=== PATIENT | male | born 1935 | race Caucasian/White ===

== ENCOUNTER 2016-11-11 11:57 | Inpatient (IN) ==
--- NOTE | 2016-11-11 12:18 | Emergency Department Note ---
Disposition Clinical Impression: CHF (congestive heart failure), Painless hematuria Disposition: Admitted As Inpatient Condition: Fair General Adult HPI - General Chief complaint: ED Urogenital-Male Stated complaint: hematuria Time Seen by Provider: 11/11/16 12:00 Source: patient, EMS Limitations: no limitations Nursing Notes Reviewed: Yes Vital Signs Reviewed: Yes - History of Present Illness Pain Scale: 9 - Related Data Home Medications Medication Instructions Recorded Confirmed Albuterol Sulfate [Proair Hfa] 2 puff IH QID PRN 11/11/16 11/11/16 Amiodarone [Cordarone] 200 mg PO DAILY 11/11/16 11/11/16 Apixaban [Eliquis] 5 mg PO BID 11/11/16 11/11/16 Ascorbate Calcium [Vitamin C] 250 mg PO DAILY 11/11/16 11/11/16 Aspirin [Lo-Dose Aspirin EC] 81 mg PO DAILY 11/11/16 11/11/16 Baclofen [Lioresal] 5 mg PO BID 11/11/16 11/11/16 Budesonide/Formoterol 160/4.5 2 puff IH BID 11/11/16 11/11/16 [Symbicort 160/4.5] Calcium Carbonate [Calcium] 650 mg PO DAILY 11/11/16 11/11/16 Docusate Sodium [Dok] 100 mg PO DAILY 11/11/16 11/11/16 Ferrous Sulfate [Iron] 325 mg PO DAILY 11/11/16 11/11/16 Finasteride [Proscar] 5 mg PO DAILY 11/11/16 11/11/16 Furosemide [Lasix] 40 mg PO BID 11/11/16 11/11/16 HYDROcodone/Acet 5/325 mg [[place] 1 tab PO Q6H PRN 11/11/16 11/11/16 5-325 mg] Lisinopril [Zestril] 10 mg PO DAILY 11/11/16 11/11/16 Omeprazole 20 mg PO DAILY 11/11/16 11/11/16 Polyethylene Glycol 3350 [MiraLAX 17 gm PO DAILY 11/11/16 11/11/16 bowel prep] Rosuvastatin [Crestor] 10 mg PO HS 11/11/16 11/11/16 Tamsulosin HCl [Flomax] 0.4 mg PO DAILY 11/11/16 11/11/16 glipiZIDE [Glucotrol] 5 mg PO BID 11/11/16 11/11/16 Allergies Allergy/AdvReac Type Severity Reaction Status Date / Time bacitracin Allergy Rash Verified 11/11/16 12:08 Past Medical History - Past Medical History Medical history: Reports: atrial fibrillation, CHF, COPD, coronary artery disease, diabetes, hyperlipidemia, hypertension, myocardial infarction, other Psychiatric history: Reports: no psych history - Social History Smoking Status: Former smoker Smokeless Tobacco Status: No Alcohol use: Reports: none Drug use: Reports: none Physical Exam - General Limitations: no limitations General appearance: alert, in no apparent distress Course Vital Signs Temperature 97.9 F 11/11/16 11:59 Pulse Rate 82 11/11/16 11:59 Respiratory Rate 18 11/11/16 11:59 Blood Pressure 116/69 11/11/16 11:59 O2 Sat by Pulse Oximetry 100 11/11/16 11:59 Temperature 98.0 F 11/11/16 13:26 Pulse Rate 80 11/11/16 13:26 Respiratory Rate 15 11/11/16 16:12 Blood Pressure 148/77 11/11/16 13:26 O2 Sat by Pulse Oximetry 98 11/11/16 16:12 Oxygen Delivery Oxygen Delivery Room Air Medical Decision Making - MDM Narrative Medical decision making narrative: I examined this patient and my medical decision-making was reviewed with the REFRACTORY MIXER/PA/Advanced Practice Nurse/Resident Physician. I agree with the documented findings, disposition and treatment plan as described except to the extent set forth below. Patient was seen today by Dr. Lopez and myself, I agree with his evaluation and treatment plan, supervised the care of the patient 's stay. Patient was a transfer from the [facility]. He was being evaluated for hematuria there which she does have. They also said he had a history of CHF and was hypotensive there is blood pressure was initially 70 systolic they did give him fluids when medics got here his blood pressure is 114 /74. He looks good. Reviewed through his chart. Vertigo and get him admitted this time he will need hospital's admission with urology consulting. - Lab Data Result diagrams: 11/11/16 15:58
--- NOTE | 2016-11-11 12:54 | Emergency Department Note ---
Disposition Clinical Impression: Painless hematuria CHF (congestive heart failure) Qualifiers: Congestive heart failure type: unspecified congestive heart failure type Congestive heart failure chronicity: unspecified congestive heart failure chronicity Qualified Code(s): I50.9 - Heart failure, unspecified Disposition: Admitted As Inpatient Condition: Fair Forms: ED Satisfaction Letter Time of Disposition: 13:05 General Adult HPI - General Chief complaint: ED Urogenital-Male Stated complaint: hematuria Time Seen by Provider: 11/11/16 12:00 Source: patient, EMS Mode of arrival: EMS Limitations: no limitations Nursing Notes Reviewed: Yes Vital Signs Reviewed: Yes - History of Present Illness HPI Narrative: Patient arrives to the ED via EMS as a [facility] [place]. The patient presented to urgent care today with painless hematuria that was onset last night. There is no associated abdominal pain. No flank pain. States that he was scoped last year and [place], but was never told what was going on. When EMS got there, they found him somewhat confused with a systolic blood pressure of 70. [facility] reports that they believe his CHF is acting up with an elevated BNP and pulmonary edema on chest x -ray. Patient denies any current chest pain or significant difficulty in breathing above his baseline. No fevers. [facility] did not seem concerned with his initial hypotension and he seemed to have responded very well to fluids. Pain Scale: 9 - Related Data Allergies Allergy/AdvReac Type Severity Reaction Status Date / Time bacitracin Allergy Rash Verified 11/11/16 12:08 Constitutional: Denies: fever Eyes: Denies: vision change Cardiovascular: Denies: chest pain Respiratory: Denies: dyspnea Gastrointestinal: Denies: abdominal pain Genitourinary: Reports: as per HPI Past Medical History - Past Medical History Medical history: Reports: atrial fibrillation, CHF, COPD, coronary artery disease, diabetes, hyperlipidemia, hypertension, myocardial infarction, other Psychiatric history: Reports: no psych history - Social History Smoking Status: Former smoker Smokeless Tobacco Status: No Alcohol use: Reports: none Drug use: Reports: none Physical Exam - General Limitations: no limitations General appearance: alert, in no apparent distress - Head Head exam: atraumatic, normocephalic, normal inspection - Eye Eye exam: Present: normal appearance, PERRL, EOMI - ENT ENT exam: normal exam, normal oropharynx, mucous membranes moist - Neck Neck exam: Present: normal inspection, full ROM, trachea midline - Chest Chest inspection: Present: normal inspection, symmetric chest wall rise - Respiratory Respiratory exam: Present: normal lung sounds bilaterally. Absent: respiratory distress - Cardiovascular Cardiovascular exam: Present: regular rate, normal rhythm, normal heart sounds - Abdominal Exam Abdominal exam: Present: soft, Non-Tender. Absent: tenderness - Extremities Exam Extremities exam: Present: pedal edema (Chronic venous stasis changes) - Back Exam Back exam: Present: normal inspection, full ROM. Absent: tenderness - Neurological Exam Neurological exam: Present: alert, oriented X3, CN II-XII intact - Skin Skin exam: Present: warm, dry, intact, normal color (Venous stasis changes bilateral lower extremities, chronic, no change) Course Course Narrative: 81-year-old male [facility] in the setting of CHF and painless hematuria. Will admit with urology consult. Patient completely stable now. Does not seem to be in overt failure. Vital Signs Temperature 97.9 F 11/11/16 11:59 Pulse Rate 82 11/11/16 11:59 Respiratory Rate 18 11/11/16 11:59 Blood Pressure 116/69 11/11/16 11:59 O2 Sat by Pulse Oximetry 100 11/11/16 11:59 Temperature 97.9 F 11/11/16 11:59 Pulse Rate 82 11/11/16 11:59 Respiratory Rate 18 11/11/16 11:59 Blood Pressure 116/69 11/11/16 11:59 O2 Sat by Pulse Oximetry 100 11/11/16 11:59 Oxygen Delivery Oxygen Delivery Room Air
[2016-11-11 14:22] LABS: Bilirubin,Urine Negative (Negative); Blood,Urine Large (Negative); Clarity,Urine Cloudy (Clear); Glucose,Urine (UA) Normal (Normal); Ketones,Urine Negative (Negative); Leukocyte Esterase,Urine Small (Negative); Nitrite,Urine Negative (Negative); Protein,Urine >=1000 mg/dL (Neg-Trace); Specific Gravity,Urine > 1.030 (1.010-1.025); Urobilinogen,Urine Normal (Normal)
[2016-11-11 14:24] LABS: Color,Urine Red (Yellow)
--- NOTE | 2016-11-11 15:37 | Internal Med History&Physical ---
<Harman Boyle - Last Filed: 11/11/16 18:16> Date of Encounter: 11/11/16 Time of Encounter: 15:32 Assessment and Plan (1) Painless hematuria Current visit: Yes Status: Acute Patient has 200 mL of dark red blood in urinal at bedside. No gross blood from urethral meatus. Urology/Dr. Waterman consulted. We will keep nothing by mouth for now and await further recommendations. Anticoagulation at this time due to active bleeding. Renal ultrasound pending patient given vitamin K (2) Atrial fibrillation Current visit: Yes Status: Chronic Rate controlled on amiodarone. Continue to monitor. No anticoagulation at this time due to active bleeding Qualifiers: Atrial fibrillation type: chronic Qualified Code(s): I48.2 - Chronic atrial fibrillation (3) Chronic anticoagulation Current visit: Yes Status: Acute Patient reports he was on Eliquis prior to switching to Coumadin. Will hold Coumadin at this time due to Active bleeding (4) Obesity (BMI 30-39.9) Current visit: Yes Status: Acute Discussed diet modifications and exercise. (5) BPH (benign prostatic hyperplasia) Current visit: Yes Status: Acute Continue home Proscar and Flomax. Qualifiers: Lower urinary tract symptom presence: symptoms absent Qualified Code(s): N40.0 - Benign prostatic hyperplasia without lower urinary tract symptoms (6) CHF (congestive heart failure) Current visit: Yes Status: Chronic Continue Lasix 40 mg by mouth twice a day, Hold antihypertensive medicines at this time due to hypotension at presentation Qualifiers: Congestive heart failure type: unspecified congestive heart failure type Congestive heart failure chronicity: unspecified congestive heart failure chronicity Qualified Code(s): I50.9 - Heart failure, unspecified (7) Coronary artery disease Current visit: Yes Status: Acute Continue to monitor. Qualifiers: Coronary Disease-Associated Artery/Lesion type: [place] artery Qualified Code(s): I25.10 - Atherosclerotic heart disease of [place] coronary artery without angina pectoris (8) Diabetes mellitus type 2 in obese Current visit: Yes Status: Acute Hold glipizide. Continue medium dose sliding scale insulin. (9) CKD (chronic kidney disease) stage 3, GFR 30-59 ml/min Current visit: Yes Status: Acute Baseline GFR 41. 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 Renal ultrasound pending (10) COPD (chronic obstructive pulmonary disease) Current visit: Yes Status: Chronic Continue duo nebs Qualifiers: COPD type: unspecified COPD Qualified Code(s): J44.9 - Chronic obstructive pulmonary disease, unspecified (11) HLD (hyperlipidemia) Current visit: Yes Status: Acute (12) Aortic stenosis Current visit: No Status: Chronic 2/6 BRIAN. Continue to monitor Qualifiers: Cardiac valve disease etiology: etiology unspecified Qualified Code(s): I35.0 - Nonrheumatic aortic (valve) stenosis (13) Skin ulcer, stage 2 Current visit: Yes Status: Acute Stage II ulcer in medial left leg. Dressings saturated. Will change dressing and continue to monitor. Patient is a diabetic Qualifiers: Qualified Code(s): L98.491 - Non-pressure chronic ulcer of skin of other sites limited to breakdown of skin (14) DVT prophylaxis Current visit: Yes Status: Acute SCDs. No atypical regulation distended active bleeding. Patient seen and examined, plan discussed with and agreed upon with Dr. Prince Internal Medicine - H&P: HPI Admitted From: Home Plans for Post Hospital Care: Home History of present illness: Mr. Waterman is a 81 year old male medical history of atrial fibrillation, CKD, hypertension, coronary artery disease and BPH that presented with gross hematuria since yesterday. Patient reports passing clots of blood through his urethra since last night. is at bedside and reports patient had similar episode in April 2016 and had a cystoscopy at [facility]. Patient reports he was recently switched from Eliquis to Coumadin for atrial fibrillation. Patient denies any type of urethral injury, dysuria, urinary frequency, or inability to void. Patient was evaluated at the apex prior to arrival his urine analysis showed a turbid appearance, positive nitrites, gross blood, and greater than 180 white blood cells. White blood count was 6.2, Hemoglobin was 12.5, and hematocrit 38.2, sodium 143, potassium 4.4, chloride 106, CO2 29, BUN 24, creatinine 2.62, glucose 114. Repeat hemoglobin was 10.5 and hematocrit 32.4. His PT was 28.0 and INR 2.5. EKG showed atrial fibrillation rate 84 with paced rhythm. 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 His blood pressure improved from 98/52 to 148/77 with normal saline. Past Med Surg Social Fam HX - Past Medical History Source: patient, old records reviewed, obtained from family Medical history: atrial fibrillation, cancer (Skin), cirrhosis, CHF, COPD, coronary artery disease, diabetes, GERD, hyperlipidemia, hypertension, myocardial infarction, renal disease, other (Venous Stasis, BPH, CT x2 w/o stents) Psychiatric history: no psych history - Past Surgical History Surgical History: cataract, herniorrhaphy (umbilical x2), pacemaker/AICD, other (Cystoscopy, back), AICD - Social History Smoking Status: Former smoker (50 pack ear h/o smoking, quit in 1999) Smokeless Tobacco Status: No Alcohol use: none (quit in 1999) Drug use: none Occupational status: retired Current living situation: Home - Independent Activity Level: Independent ambulation Recent Out of Country Travel Within the Last 8 Weeks: No Exposure or Possible Exposure to Illness During Travel: No - Family History Mother History Unknown: Yes Adopted: No Living Status: Age at : 92 Cause of : CT and Flu Hx Family Cardiac Disorders: Yes Father Living Status: Age at : 76 Cause of : Kidney Failure Hx Family Genitourinary Disorders: Yes Internal Medicine - H&P: Meds Albuterol Sulfate [Proair Hfa] 2 puff IH QID PRN 11/11/16 [History] Amiodarone [Cordarone] 200 mg PO DAILY 11/11/16 [History] Apixaban [Eliquis] 5 mg PO BID 11/11/16 [History] Ascorbate Calcium [Vitamin C] 250 mg PO DAILY 11/11/16 [History] Aspirin [Lo-Dose Aspirin EC] 81 mg PO DAILY 11/11/16 [History] Baclofen [Lioresal] 5 mg PO BID 11/11/16 [History] Budesonide/Formoterol 160/4.5 [Symbicort 160/4.5] 2 puff IH BID 11/11/16 [ History] Calcium Carbonate [Calcium] 650 mg PO DAILY 11/11/16 [History] Docusate Sodium [Dok] 100 mg PO DAILY 11/11/16 [History] Ferrous Sulfate [Iron] 325 mg PO DAILY 11/11/16 [History] Finasteride [Proscar] 5 mg PO DAILY 11/11/16 [History] Furosemide [Lasix] 40 mg PO BID 11/11/16 [History] HYDROcodone/Acet 5/325 mg [[place] 5-325 mg] 1 tab PO Q6H PRN 11/11/16 [History] Lisinopril [Zestril] 10 mg PO DAILY 11/11/16 [History] Omeprazole 20 mg PO DAILY 11/11/16 [History] Polyethylene Glycol 3350 [MiraLAX bowel prep] 17 gm PO DAILY 11/11/16 [History] Rosuvastatin [Crestor] 10 mg PO HS 11/11/16 [History] Tamsulosin HCl [Flomax] 0.4 mg PO DAILY 11/11/16 [History] glipiZIDE [Glucotrol] 5 mg PO BID 11/11/16 [History] Allergies bacitracin Allergy (Verified 11/11/16 12:08) Rash All Systems PM: A 10-system review of systems was performed and is negative for pertinent findings except as documented above in the HPI. - Constitutional Constitutional: no anorexia, no chills, no fatigue, no fever(s), no falls, no lethargy, no night sweats, no weakness, no weight gain - EENT Eyes: no blurry vision, no change in vision, no discharge, no pain, no photophobia Ears: no ear discharge, no ear pain, no tinnitus Nose, mouth and throat: no dysphagia, no nasal discharge, no neck pain, no sore throat - Cardiovascular Cardiovascular ROS IM: no chest pain, no diaphoresis, no dyspnea, no lightheadedness, no palpitations, no syncope - Respiratory Respiratory: dyspnea on exertion (Chronic), no cough, no dyspnea, no wheezing, no excessive phlegm production - Gastrointestinal Gastrointestinal: no abdominal pain, no diarrhea, no hematemesis, no hematochezia, no melena, no nausea, no vomiting - Genitourinary Genitourinary ROS male: hematuria, no dysuria, no flank pain, no urinary frequency, no urinary urgency - Musculoskeletal Musculoskeletal ROS IM: no numbness, no tingling - Integumentary Integumentary IM: no rash, no unusual bruising - Neurological Neurological ROS: no confusion, no convulsions, no focal weakness, no numbness, no tingling, no tremor(s) - Psychiatric Psychiatric: no anxiety, no confusion - Endocrine Endocrine IM: no fatigue, no polyuria - Hematologic/Lymphatic Hematologic/Lymphatic: no easy bruising - Allergic/Immunologic Allergic/Immunologic: no tongue swelling, no wheezing, no lip swelling - Constitutional Vitals: Temp Pulse Resp BP Pulse Ox 98.0 F 80 18 148/77 98 11/11/16 13:26 11/11/16 13:26 11/11/16 13:26 11/11/16 13:26 11/11/16 13:26 General appearance: Present: cooperative, A&O X 3, morbidly obese, no acute distress, answers questions appropriately - Head Head exam: Present: atraumatic, normocephalic - Eye Eye exam: Present: PERRL, conjuntiva pink, sclera anicteric Pupils: Present: PERRL - ENT ENT exam: Present: mucous membranes moist, normal oropharynx Additional comments: edentulous - Neck Neck exam general surgery: Present: supple, trachea midline. Absent: lymphadenopathy - Respiratory Respiratory exam: Present: CTAB. Absent: accessory muscle use, rales, rhonchi, wheezes - Cardiovascular Cardiovascular exam: Present: +S1, +S2, systolic murmur (2/6 BRIAN). Absent: diastolic murmur, gallop, rubs Additional comments: Irregularly irregular rhythm - GI/Abdominal GI/Abdominal exam: Present: normal bowel sounds, soft, no peritoneal signs. Absent: distended, firm, guarding, hernia, tenderness Additional comments: Prior surgical scars in midline umbilical area are well-healed - exam: Present: normal inspection. Absent: circumcision Additional comments: No active bleeding from urethral meatus - Extremities Exam Extremities exam: Present: normal capillary refill, warm, radial pulses palpable and symetrical. Absent: calf tenderness, cyanotic, pedal edema Additional comments: Chronic venous stasis changes bilateral lower extremities, small stage II ulcer left medial calf, dressing saturated - Neurological Exam Neurological exam: Present: CN II-XII intact, oriented X3, no focal deficits. Absent: pronater drift, facial droop, speech deficit - Psychiatric Psychiatric exam: Present: normal affect, normal mood - Skin Skin exam: Present: warm. Absent: pallor Additional comments: 1 x 2 cm stage II ulcer medial left calf, dressing saturated Internal Med - H&P Results - Labs CBC & Chem 7: 11/11/16 15:58 Labs: Urine 11/11/16 Range/Units 13:54 Urine Color Red A (Yellow) Urine Clarity Cloudy A (Clear) Urine pH 7.0 (5.0-8.0) pH Units Ur Specific [place] > 1.030 H (1.010-1.025) Urine Protein >=1000 H (Neg-Trace) mg/dL Urine Glucose (UA) Normal (Normal) mg/dL - EKG Data -: EKG Interpreted by Myself - EKG Data Prior EKG available for review: yes When compared to previous EKG: there is no significant change EKG comments: 11/11/16 18:40 Rate 84, atrial fibrillation with multiple PVCs, no STEMI <Jermain Prince - Last Filed: 11/11/16 20:02> Date of Encounter: 11/11/16 Internal Medicine - H&P: HPI History of present illness: Mr. Waterman is a 81 year old male All Systems PM: A 10-system review of systems was performed and is negative for pertinent findings except as documented above in the HPI. - Constitutional Vitals: Temp Pulse Resp BP Pulse Ox 98.5 F 65 20 98/52 96 11/11/16 17:20 11/11/16 17:20 11/11/16 17:20 11/11/16 17:20 11/11/16 17:20 Internal Med - H&P Results - Labs CBC & Chem 7: 11/11/16 15:58 Labs: Short CBC 11/11/16 Range/Units 15:58 Hgb 10.5 L (12.9-16.9) g/dL Hct 32.4 L (37.5-50.1) % Urine 11/11/16 Range/Units 13:54 Urine Color Red A (Yellow) Urine Clarity Cloudy A (Clear) Urine pH 7.0 (5.0-8.0) pH Units Ur Specific [place] > 1.030 H (1.010-1.025) Urine Protein >=1000 H (Neg-Trace) mg/dL Urine Glucose (UA) Normal (Normal) mg/dL - Impressions ITS Impressions Retroperitoneum Ultrasound 11/11/16 18:00 IMPRESSION: 1. Large filling defects within urinary bladder, probably secondary to blood clots. D/ / Blue Phillips MD / Blue Phillips MD Interpreting Provider: Blue Phillips MD - Attending Attestation I examined this patient and my medical decision-making was reviewed with the Resident Physician, Dr Boyle. I agree with the documented findings, disposition and treatment plan as described except to the extent set forth below. patient presented with hematuria. INR is 2.5. We will give vitamin K. Consult urology. He has CHF which appears to be compensated. We will continue his home medication. Monitor hemoglobin and hematocrit. exam with normal uncircumcised , no lesions, no overt bleeding.
[2016-11-11] MEDS ORDERED: Naloxone 0.4 MG/ML INJ IVP PRN (15:38)
[2016-11-11] MEDS ORDERED: Dextrose Gel 15 GM PO PRN ×2 (15:54)
[2016-11-11] MEDS ORDERED: *HR* Dextrose 50 % in Water (Syg) 50 ML SYRINGE IVP PRN (15:54)
[2016-11-11] MEDS ORDERED: D5% in Water 1,000 ML IVC PRN (15:54)
[2016-11-11 16:11] LABS: Hematocrit 32.4 % (37.5-50.1); Hemoglobin 10.5 g/dL (12.9-16.9)
[2016-11-11] MEDS: Ipratropium/Albuterol Neb 3 ML IH SCH ×2 (16:12→20:20)
[2016-11-11 16:15] LABS: INR 2.5
[2016-11-11] MEDS ORDERED: *HR* Phytonadione 5 MG TABLET PO ONE (17:02)
[2016-11-11] MEDS: Insulin LISPRO 300 UNITS/3 ML VIAL SQ SCH (17:06)
[2016-11-11] MEDS: Furosemide 40 MG TABLET PO SCH (17:06)
[2016-11-11] MEDS: Budesonide/Formoterol 160/4.5 MDI IH SCH (20:20)
--- NOTE | 2016-11-11 21:18 | Urology - Consult Note ---
Date of Encounter: 11/11/16 Time of Encounter: 21:16 - Assessment and Plan (1) Clot retention of urine Current Visit: Yes Status: Acute Assessment and plan: I placed hematuria catheter and irrigated large volume of clot. CBI was started and it began to clear. see procedure note plan - will continue CBI until urine clears. no need for OR at this time. OK to start diet - I recommend IVF and ABX - check urine cx. - hold anticoagulation as long as possible. - will likely require cystoscopy as outpatient - will follow renal ultrasound results. - will follow daily. Urology CN:UMESH Consult date: 11/11/16 Reason for consult Urology: Gross Hematuria History of present illness: new pt the urology service. transferred from [place] with gross hematuria. patient is having difficulty voiding and is passing clots. similar episode that required hospitalization in [facility]. pt is unsure if he underwent workup or cystoscopy. he has been on eliquis for a.fib. Past Med Surg Social Fam HX - Past Medical History Medical history: atrial fibrillation, cancer (Skin), cirrhosis, CHF, COPD, coronary artery disease, diabetes, GERD, hyperlipidemia, hypertension, myocardial infarction, renal disease, other (Venous Stasis, BPH, AL x2 w/o stents) Psychiatric history: no psych history - Past Surgical History Surgical History: cataract, herniorrhaphy (umbilical x2), pacemaker/AICD, other (Cystoscopy, back), AICD - Social History Smoking Status: Former smoker (50 pack ear h/o smoking, quit in 1999) Smokeless Tobacco Status: No Alcohol use: none (quit in 1999) Drug use: none - Family History Mother History Unknown: Yes Adopted: No Living Status: Age at : 89 Cause of : AL and Flu Hx Family Cardiac Disorders: Yes Father Living Status: Age at : 76 Cause of : Kidney Failure Hx Family Genitourinary Disorders: Yes Medications and Allergies Albuterol Sulfate [Proair Hfa] 2 puff IH QID PRN 11/11/16 [History] Amiodarone [Cordarone] 200 mg PO DAILY 11/11/16 [History] Apixaban [Eliquis] 5 mg PO BID 11/11/16 [History] Ascorbate Calcium [Vitamin C] 250 mg PO DAILY 11/11/16 [History] Aspirin [Lo-Dose Aspirin EC] 81 mg PO DAILY 11/11/16 [History] Baclofen [Lioresal] 5 mg PO BID 11/11/16 [History] Budesonide/Formoterol 160/4.5 [Symbicort 160/4.5] 2 puff IH BID 11/11/16 [ History] Calcium Carbonate [Calcium] 650 mg PO DAILY 11/11/16 [History] Docusate Sodium [Dok] 100 mg PO DAILY 11/11/16 [History] Ferrous Sulfate [Iron] 325 mg PO DAILY 11/11/16 [History] Finasteride [Proscar] 5 mg PO DAILY 11/11/16 [History] Furosemide [Lasix] 40 mg PO BID 11/11/16 [History] HYDROcodone/Acet 5/325 mg [[place] 5-325 mg] 1 tab PO Q6H PRN 11/11/16 [History] Lisinopril [Zestril] 10 mg PO DAILY 11/11/16 [History] Omeprazole 20 mg PO DAILY 11/11/16 [History] Polyethylene Glycol 3350 [MiraLAX bowel prep] 17 gm PO DAILY 11/11/16 [History] Rosuvastatin [Crestor] 10 mg PO HS 11/11/16 [History] Tamsulosin HCl [Flomax] 0.4 mg PO DAILY 11/11/16 [History] glipiZIDE [Glucotrol] 5 mg PO BID 11/11/16 [History] Allergies bacitracin Allergy (Verified 11/11/16 12:08) Rash Review of Systems - Constitutional no chills, no malaise - EENT Nose, mouth and throat: no dizziness - Cardiovascular no chest pain - Respiratory no cough - Gastrointestinal abdominal pain - Genitourinary hematuria, urinary hesitancy - Musculoskeletal back pain - Integumentary no erythema - Neurological no confusion - Psychiatric no anxiety - Hematologic/Lymphatic easy bleeding - Allergic/Immunologic no throat swelling Exam Initial Vital Signs Temp Pulse Resp BP Pulse Ox 97.9 F 82 18 116/69 100 11/11/16 11:59 11/11/16 11:59 11/11/16 11:59 11/11/16 11:59 11/11/16 11:59 - General physical appearance Present: well developed, no distress - Eyes Present: PERRL - ENT Present: normal nares - Neck Present: no masses - Respiratory Present: normal respiratory effort - Cardiovascular Cardiovascular exam IM: RRR - Abdomen Abdomen: Present: soft, suprapubic tenderness - Genitourinary normal penis with no external lesions - Integumentary Present: no rash - Neurologic Present: normal coordination. Absent: disoriented, confused - Additional Findings bedside urine is dark red urine. Urology Results - Labs 11/11/16 15:58 Abnormal lab results Hgb 10.5 g/dL (12.9-16.9) L 11/11/16 15:58 Hct 32.4 % (37.5-50.1) L 11/11/16 15:58 PT 28.0 Seconds (9.4-12.1) H 11/11/16 15:58 POC Glucose 140 (58-89) H 11/11/16 13:31 Ur Specimen Adequacy See below A 11/11/16 13:54 Urine Color Red (Yellow) A 11/11/16 13:54 Urine Clarity Cloudy (Clear) A 11/11/16 13:54 Ur Specific [place] > 1.030 (1.010-1.025) H 11/11/16 13:54 Urine Protein >=1000 mg/dL (Neg-Trace) H 11/11/16 13:54 Urine Blood Large (Negative) H 11/11/16 13:54 Ur Leukocyte Esterase Small (Negative) H 11/11/16 13:54 Ur Culture Indicated? YES (NO) A 11/11/16 13:54 All other labs normal. Procedures:Urology - Bladder Irrigation/Clot Evacuation Consent obtained: verbal consent Time out performed: Yes Irrigation: saline Amount of Clot: 500cc clot. Patient tolerated procedure: well Continuous Bladder Irrigation: Yes (started to clear but still light pink) Complications: none Additional comments: [address] hematuria cath placed after pt was prepped with betadine and lidocaine jelly inserted. no issues with insertion. Consult Discharge Plan - Plan [facility]errals: [facility] [Primary Care Provider] -
[2016-11-11] MEDS: *HR* HYDROcodone/Acet 5/325 mg TABLET PO PRN (21:52)
[2016-11-11] MEDS: Baclofen 10 MG TABLET PO SCH (21:55)
[2016-11-11 22:20] LABS: Hematocrit 30.9 % (37.5-50.1); Hemoglobin 10.1 g/dL (12.9-16.9)
[2016-11-11] MEDS ORDERED: 0.9 % Sodium Chloride 500 ML IVC ONE (22:46)
[2016-11-12] MEDS: Ipratropium/Albuterol Neb 3 ML IH SCH ×4 (00:34→11:30)
[2016-11-12] MEDS: Insulin LISPRO 300 UNITS/3 ML VIAL SQ SCH ×5 (02:05→20:38)
[2016-11-12] MEDS: Furosemide 40 MG TABLET PO SCH ×2 (04:22→16:38)
[2016-11-12 05:00] LABS: Basophils % 0.1 %; Eosinophils # 0.1 K/mcL (0.0-0.6); Hematocrit 29.3 % (37.5-50.1); Hemoglobin 9.4 g/dL (12.9-16.9); Immature Granulocytes % 0.3 % (0-4); Lymphocytes # 1.4 K/mcL (0.6-4.6); Lymphocytes % 19.7 %; Mean Corpuscular HGB Conc 32.1 g/dL (31.6-35.5); Mean Corpuscular Hemoglobin 31.3 pg (28.0-33.3); Mean Corpuscular Volume 97.7 fL (83.0-100.0); Mean Platelet Volume 11.7 fL (9.4-12.4); Monocytes # 0.5 K/mcL (0.0-1.3); Monocytes % 6.9 %; Platelet Count 101 K/mcL (140-400); Red Cell Distribution Width 14.3 % (11.5-14.5)
[2016-11-12 05:07] LABS: INR 2.2; Prothrombin Time 24.2 Seconds (9.4-12.1)
[2016-11-12 05:22] LABS: Albumin/Globulin Ratio 1.3 (1.1-2.2); Bilirubin,Total 0.7 mg/dL (0.2-1.2); Calcium 8.5 mg/dL (8.6-10.8); Globulin 2.4 g/dL (2.4-3.5); Potassium 4.3 mEq/L (3.5-4.5); Total Protein 5.4 g/dL (6.0-8.3)
--- NOTE | 2016-11-12 07:01 | Urology Progress Note ---
Date of Encounter: 11/12/16 Time of Encounter: 06:58 - Assessment and Plan (1) Clot retention of urine Current Visit: Yes Status: Resolved Assessment and plan: after irrigating all clots his urine has cleared. OK to stop CBI and watch. still hold anticoagulation. I may remove cath tomorrow if he stays clear pt with renal insufficiency. unsure if acute or chronic. consider nephrology if acute. hemoglobin drifting down but no need for transfusion at this time. may still drop further based on amount of clot yesterday. Progress Note Subjective: no new complaints, feels better Narrative: hematuria resolved. Objective Initial Vital Signs Temp Pulse Resp BP Pulse Ox 97.9 F 82 18 116/69 100 11/11/16 11:59 11/11/16 11:59 11/11/16 11:59 11/11/16 11:59 11/11/16 11:59 - General physical appearance Present: no distress - Additional Exam no CBI running and urine clear. - Labs 11/12/16 04:45 11/12/16 04:45 Diabetes panel 11/12/16 Range/Units 04:45 Sodium 141 (136-145) mEq/L Potassium 4.3 (3.5-4.5) mEq/L Chloride 107 (98-109) mEq/L Carbon Dioxide 26 (19-29) mEq/L BUN 30 H (8-26) mg/dL Creatinine 2.47 H (0.72-1.25) mg/dL Glucose 107 H (70-99) mg/dL Calcium 8.5 L (8.6-10.8) mg/dL AST 19 (5-34) Units/L ALT 14 (0-55) Units/L Alkaline Phosphatase 45 (38-126) Units/L Albumin 3.0 L (3.5-5.0) g/dL Calcium panel 11/12/16 Range/Units 04:45 Calcium 8.5 L (8.6-10.8) mg/dL Albumin 3.0 L (3.5-5.0) g/dL Pituitary panel 11/12/16 Range/Units 04:45 Sodium 141 (136-145) mEq/L Potassium 4.3 (3.5-4.5) mEq/L Chloride 107 (98-109) mEq/L Carbon Dioxide 26 (19-29) mEq/L BUN 30 H (8-26) mg/dL Creatinine 2.47 H (0.72-1.25) mg/dL Glucose 107 H (70-99) mg/dL Calcium 8.5 L (8.6-10.8) mg/dL Adrenal panel 11/12/16 Range/Units 04:45 Sodium 141 (136-145) mEq/L Potassium 4.3 (3.5-4.5) mEq/L Chloride 107 (98-109) mEq/L Carbon Dioxide 26 (19-29) mEq/L BUN 30 H (8-26) mg/dL Creatinine 2.47 H (0.72-1.25) mg/dL Glucose 107 H (70-99) mg/dL Calcium 8.5 L (8.6-10.8) mg/dL Total Bilirubin 0.7 (0.2-1.2) mg/dL AST 19 (5-34) Units/L ALT 14 (0-55) Units/L Alkaline Phosphatase 45 (38-126) Units/L Albumin 3.0 L (3.5-5.0) g/dL Consult Discharge Plan - Plan Referrals: [facility] [Primary Care Provider] -
[2016-11-12] MEDS: Budesonide/Formoterol 160/4.5 MDI IH SCH ×3 (07:53→19:44)
[2016-11-12] MEDS: Baclofen 10 MG TABLET PO SCH ×2 (09:12→20:32)
[2016-11-12] MEDS: Finasteride 5 MG TABLET PO SCH (09:19)
[2016-11-12] MEDS: *HR* Amiodarone 200 MG TABLET PO SCH (09:20)
[2016-11-12] MEDS ORDERED: Ipratropium/Albuterol Neb 3 ML IH PRN (13:27)
--- NOTE | 2016-11-12 13:59 | Internal Med Progress Note ---
<Linus Mendes - Last Filed: 11/12/16 15:19> Date of Encounter: 11/12/16 Time of Encounter: 08:45 - Assessment and plan (1) Painless hematuria Current Visit: Yes Status: Acute Assessment and plan: Catheter bag was examined this morning, which showed bright red blood. -Urology/Dr. Waterman has been consulted. -Anticoagulation reversal performed due to active bleeding. -Patient was given vitamin K. (2) BPH (benign prostatic hyperplasia) Current Visit: Yes Status: Acute Assessment and plan: Patient has elevated BPH. -Continue home Proscar and Flomax. Qualifiers: Lower urinary tract symptom presence: unspecified whether lower urinary tract symptoms present Qualified Code(s): N40.0 - Benign prostatic hyperplasia without lower urinary tract symptoms (3) CKD (chronic kidney disease) stage 3, GFR 30-59 ml/min Current Visit: Yes Status: Acute Assessment and plan: Patient has a baseline GFR of 41. -Patient's creatinine this morning was 2.47. (4) Diabetes mellitus type 2 in obese Current Visit: Yes Status: Acute (5) CHF (congestive heart failure) Current Visit: Yes Status: Chronic Assessment and plan: Continue Lasix 40 mg by mouth twice a day. -Hold antihypertensive medications due to hypotension at presentation. -Patient's BP this morning was 106/64. Qualifiers: Congestive heart failure type: unspecified congestive heart failure type Congestive heart failure chronicity: unspecified congestive heart failure chronicity Qualified Code(s): I50.9 - Heart failure, unspecified (6) COPD (chronic obstructive pulmonary disease) Current Visit: Yes Status: Chronic Assessment and plan: Continue Duo nebs Qualifiers: Qualified Code(s): J44.9 - Chronic obstructive pulmonary disease, unspecified (7) Atrial fibrillation Current Visit: No Status: Chronic Assessment and plan: Patient's heart rate is controlled on amiodarone. -Continue to monitor. -Patient's anticoagulation medications have been held at this time due to active bleeding. Qualifiers: Qualified Code(s): I48.91 - Unspecified atrial fibrillation - Subjective Interval history: Patient was seen and examined at bedside this morning. He stated that he was feeling well, denied having any pain in his abdomen or suprapubic region. He denied having any back pain as well. He stated that his hematuria has happened one time before approximately a year and a half ago. During these episodes of hematuria, patient feels no pain. He states that when he was brought to the hospital, he felt weakness, particularly in his legs. This morning he denied having any weakness, fatigue, confusion, or dizziness. He denies nausea, vomiting, fever, chills, or GI distress. Catheter bag was examined at bedside, and bright red blood was present. - Constitutional Vitals: Temp Pulse Resp BP Pulse Ox 97.6 F 98 16 106/60 97 11/12/16 10:34 11/12/16 10:34 11/12/16 11:30 11/12/16 10:34 11/12/16 11:30 General appearance: Present: cooperative, A&O X 3, morbidly obese, no acute distress, answers questions appropriately - Head Head exam: Present: normocephalic - ENT ENT exam: Present: mucous membranes moist - Respiratory Respiratory exam: Present: CTAB. Absent: accessory muscle use, rales, rhonchi, wheezes - Cardiovascular Cardiovascular exam: Present: RRR, +S1, +S2. Absent: diastolic murmur, gallop, rubs, systolic murmur - GI/Abdominal GI/Abdominal exam: Present: normal bowel sounds, soft, no peritoneal signs. Absent: distended, tenderness Internal Medicine: Result - Labs CBC & Chem 7: 11/12/16 04:45 11/12/16 04:45 Labs: Short CBC 11/11/16 11/12/16 Range/Units 22:08 04:45 WBC 7.0 (4.3-11.1) K/mcL Hgb 10.1 L 9.4 L (12.9-16.9) g/dL Hct 30.9 L 29.3 L (37.5-50.1) % Plt Count 101 L (140-400) K/mcL Neutrophils # 5.0 (1.6-8.9) K/mcL BMP 11/12/16 04:45 Sodium 141 Potassium 4.3 Chloride 107 Carbon Dioxide 26 BUN 30 H Creatinine 2.47 H Glucose 107 H Calcium 8.5 L Liver Function 11/12/16 Range/Units 04:45 Total Bilirubin 0.7 (0.2-1.2) mg/dL AST 19 (5-34) Units/L ALT 14 (0-55) Units/L Alkaline Phosphatase 45 (38-126) Units/L Albumin 3.0 L (3.5-5.0) g/dL - ABG Interpretation ABG results: PT/INR, D-dimer PT 24.2 Seconds (9.4-12.1) H 11/12/16 04:45 Consult Discharge Plan - Plan [facility]errals: [facility] [Primary Care Provider] - <Shane Baxter Kasey - Last Filed: 11/12/16 16:03> Date of Encounter: 11/12/16 - Constitutional Vitals: Temp Pulse Resp BP Pulse Ox 97.5 F L 94 18 109/62 97 11/12/16 15:11 11/12/16 15:11 11/12/16 15:11 11/12/16 15:11 11/12/16 15:11 Internal Medicine: Result - Labs CBC & Chem 7: 11/12/16 04:45 11/12/16 04:45 Labs: Short CBC 11/11/16 11/12/16 Range/Units 22:08 04:45 WBC 7.0 (4.3-11.1) K/mcL Hgb 10.1 L 9.4 L (12.9-16.9) g/dL Hct 30.9 L 29.3 L (37.5-50.1) % Plt Count 101 L (140-400) K/mcL Neutrophils # 5.0 (1.6-8.9) K/mcL BMP 11/12/16 04:45 Sodium 141 Potassium 4.3 Chloride 107 Carbon Dioxide 26 BUN 30 H Creatinine 2.47 H Glucose 107 H Calcium 8.5 L Liver Function 11/12/16 Range/Units 04:45 Total Bilirubin 0.7 (0.2-1.2) mg/dL AST 19 (5-34) Units/L ALT 14 (0-55) Units/L Alkaline Phosphatase 45 (38-126) Units/L Albumin 3.0 L (3.5-5.0) g/dL - ABG Interpretation ABG results: PT/INR, D-dimer PT 24.2 Seconds (9.4-12.1) H 11/12/16 04:45 - Attending Attestation I examined this patient and my medical decision-making was reviewed with the Resident Physician on 11/12/16. I agree with the documented findings, disposition and treatment plan as described except to the extent set forth below. 81 M Seen and evaluated at bedside Patient with Afib on anicoagulation, CHFrEF, COPD, CKD III, HLD, , Chronic leg ulcer, DM Admitted and being managed for painless hematuria Has no new complains, on CBI with some blood in the urine at time of review Physical exam noted for Obesity, chest is clear, murmur, abdomen is not tender, no pedal edema bilaterally Continue CBI, monitor HB, Give Vitamin K, INR is 2.2 today, Retroperitoneum USS noted for bladder filling defects, obtain CT, r/o malignancy, continue to hole anticoagulation, type and screen. Discontinue antibiotics Urine culture is finalized, with no growth Rest of details as in resident's documentation
[2016-11-12] MEDS ORDERED: *HR* Phytonadione 5 MG TABLET PO ONE (15:48)
--- NOTE | 2016-11-12 16:11 | Electrocardiograph Report ---
[place] [id number] Test Date: 2016-11-11 Pat Name: Rosendo Waterman Department: 103 Room: 2A12 Gender: M Scrum Product Owner: AM : 1935 Requested By: Shane Baxter Order Number: [id number] Reading MD: Amilcar Renteria Measurements Intervals Speculator Rate: 84 P: CT: 0 QRS: 18 QRSD: 101 T: 0 QT: 350 QTc: 391 Interpretive Statements UNCERTAIN IRREGULAR RHYTHM ELECTRONIC VENTRICULAR PACEMAKER Electronically Signed On 11-12-2016 16:09:47 EDT by Amilcar Renteria
--- NOTE | 2016-11-12 18:17 | Urology Progress Note ---
Date of Encounter: 11/12/16 Time of Encounter: 18:15 - Assessment and Plan (1) Clot retention of urine Current Visit: Yes Status: Resolved Assessment and plan: I again irrigated the patient but had no return of clots. We will need to continue CBI until his urine clears. May still be partly anticoagulated as the eliquis was just recently stopped Progress Note Subjective: no new complaints, feels better Objective Initial Vital Signs Temp Pulse Resp BP Pulse Ox 97.9 F 82 18 116/69 100 11/11/16 11:59 11/11/16 11:59 11/11/16 11:59 11/11/16 11:59 11/11/16 11:59 - General physical appearance Present: well developed, no distress - Additional Exam Moderate CBI and nearly clear urine - Labs 11/12/16 04:45 11/12/16 04:45 Diabetes panel 11/12/16 Range/Units 04:45 Sodium 141 (136-145) mEq/L Potassium 4.3 (3.5-4.5) mEq/L Chloride 107 (98-109) mEq/L Carbon Dioxide 26 (19-29) mEq/L BUN 30 H (8-26) mg/dL Creatinine 2.47 H (0.72-1.25) mg/dL Glucose 107 H (70-99) mg/dL Calcium 8.5 L (8.6-10.8) mg/dL AST 19 (5-34) Units/L ALT 14 (0-55) Units/L Alkaline Phosphatase 45 (38-126) Units/L Albumin 3.0 L (3.5-5.0) g/dL Calcium panel 11/12/16 Range/Units 04:45 Calcium 8.5 L (8.6-10.8) mg/dL Albumin 3.0 L (3.5-5.0) g/dL Pituitary panel 11/12/16 Range/Units 04:45 Sodium 141 (136-145) mEq/L Potassium 4.3 (3.5-4.5) mEq/L Chloride 107 (98-109) mEq/L Carbon Dioxide 26 (19-29) mEq/L BUN 30 H (8-26) mg/dL Creatinine 2.47 H (0.72-1.25) mg/dL Glucose 107 H (70-99) mg/dL Calcium 8.5 L (8.6-10.8) mg/dL Adrenal panel 11/12/16 Range/Units 04:45 Sodium 141 (136-145) mEq/L Potassium 4.3 (3.5-4.5) mEq/L Chloride 107 (98-109) mEq/L Carbon Dioxide 26 (19-29) mEq/L BUN 30 H (8-26) mg/dL Creatinine 2.47 H (0.72-1.25) mg/dL Glucose 107 H (70-99) mg/dL Calcium 8.5 L (8.6-10.8) mg/dL Total Bilirubin 0.7 (0.2-1.2) mg/dL AST 19 (5-34) Units/L ALT 14 (0-55) Units/L Alkaline Phosphatase 45 (38-126) Units/L Albumin 3.0 L (3.5-5.0) g/dL Consult Discharge Plan - Plan Referrals: [facility] [Primary Care Provider] - 11/18/16 11:30 am
[2016-11-12] MEDS: *HR* HYDROcodone/Acet 5/325 mg TABLET PO PRN (20:43)
[2016-11-13 05:04] LABS: Basophils % 0.3 %; Immature Granulocytes % 0.3 % (0-4); Mean Corpuscular Volume 96.8 fL (83.0-100.0)
[2016-11-13 05:06] LABS: Eosinophils # 0.1 K/mcL (0.0-0.6); Eosinophils % 1.4 %; Hematocrit 27.3 % (37.5-50.1); Hemoglobin 8.8 g/dL (12.9-16.9); Lymphocytes # 1.2 K/mcL (0.6-4.6); Mean Corpuscular HGB Conc 32.2 g/dL (31.6-35.5); Mean Corpuscular Hemoglobin 31.2 pg (28.0-33.3); Mean Platelet Volume 11.9 fL (9.4-12.4); Monocytes # 0.5 K/mcL (0.0-1.3); Monocytes % 7.8 %; Neutrophils # 4.1 K/mcL (1.6-8.9); Red Blood Count 2.82 M/mcL (4.19-5.50); Red Cell Distribution Width 14.3 % (11.5-14.5); Segmented Neutrophils % 70.2 %
[2016-11-13 05:08] LABS: INR 1.6; Prothrombin Time 17.5 Seconds (9.4-12.1)
[2016-11-13 05:10] LABS: Platelet Count 95 K/mcL (140-400)
[2016-11-13 05:14] LABS: Calcium 8.6 mg/dL (8.6-10.8); Potassium 4.9 mEq/L (3.5-4.5)
[2016-11-13] MEDS: Insulin LISPRO 300 UNITS/3 ML VIAL SQ SCH ×4 (07:49→20:49)
[2016-11-13] MEDS: Budesonide/Formoterol 160/4.5 MDI IH SCH ×2 (08:16→22:16)
[2016-11-13] MEDS: Furosemide 40 MG TABLET PO SCH ×2 (08:51→16:45)
[2016-11-13] MEDS: Finasteride 5 MG TABLET PO SCH (08:51)
[2016-11-13] MEDS: Baclofen 10 MG TABLET PO SCH ×2 (08:51→20:42)
[2016-11-13] MEDS: *HR* Amiodarone 200 MG TABLET PO SCH (08:51)
--- NOTE | 2016-11-13 13:01 | Internal Med Progress Note ---
<Linus Mendes - Last Filed: 11/13/16 15:18> Date of Encounter: 11/13/16 Time of Encounter: 08:30 - Assessment and plan (1) Painless hematuria Current Visit: Yes Status: Acute Assessment and plan: Catheter bag was examined this morning, which showed blood in the urine. Does appear that the bleeding has decreased since yesterday. -Urology/Dr. Waterman has been consulted. -Anticoagulation reversal performed due to active bleeding. -Patient was given vitamin K. (2) BPH (benign prostatic hyperplasia) Current Visit: Yes Status: Acute Assessment and plan: Patient has elevated BPH. -Continue home Proscar and Flomax. Qualifiers: Lower urinary tract symptom presence: unspecified whether lower urinary tract symptoms present Qualified Code(s): N40.0 - Benign prostatic hyperplasia without lower urinary tract symptoms (3) CKD (chronic kidney disease) stage 3, GFR 30-59 ml/min Current Visit: Yes Status: Acute Assessment and plan: Patient has a baseline GFR of 41. -Patient's creatinine this morning was 2.39 (4) Diabetes mellitus type 2 in obese Current Visit: Yes Status: Acute (5) CHF (congestive heart failure) Current Visit: Yes Status: Chronic Assessment and plan: Continue Lasix 40 mg by mouth twice a day. -Hold antihypertensive medications due to hypotension at presentation. -Patient's BP this morning was 121/75. Qualifiers: Congestive heart failure type: unspecified congestive heart failure type Congestive heart failure chronicity: unspecified congestive heart failure chronicity Qualified Code(s): I50.9 - Heart failure, unspecified (6) COPD (chronic obstructive pulmonary disease) Current Visit: Yes Status: Chronic Assessment and plan: Continue Duo nebs Qualifiers: Emphysema type: unspecified Qualified Code(s): J43.9 - Emphysema, unspecified (7) Atrial fibrillation Current Visit: No Status: Chronic Assessment and plan: Patient's heart rate is controlled on amiodarone. -Continue to monitor. -Patient's anticoagulation medications have been held at this time due to active bleeding. Qualifiers: Qualified Code(s): I48.91 - Unspecified atrial fibrillation - Subjective Interval history: Patient was seen and examined at bedside this morning. He stated that he was feeling well, denied having any pain in his abdomen or suprapubic region. He denied having any back pain as well. This morning he denied having any weakness , fatigue, confusion, or dizziness. He denies nausea, vomiting, fever, chills, or GI distress. Catheter bag was examined at bedside, and bright red blood was present in the back, however blood appears to be much more dilated than it was yesterday. Based on examination of the bag, it does appear the patient's bleeding has decreased. - Constitutional Vitals: Temp Pulse Resp BP Pulse Ox 98.1 F 84 18 109/57 95 11/13/16 11:06 11/13/16 11:06 11/13/16 11:06 11/13/16 11:06 11/13/16 11:06 General appearance: Present: cooperative, A&O X 3, morbidly obese, no acute distress, answers questions appropriately - Head Head exam: Present: atraumatic, normocephalic - Neck Neck exam general surgery: Absent: lymphadenopathy - Respiratory Respiratory exam: Present: CTAB. Absent: accessory muscle use, rales, rhonchi, wheezes - Cardiovascular Cardiovascular exam: Present: RRR, +S1, +S2. Absent: diastolic murmur, gallop, rubs, systolic murmur - GI/Abdominal GI/Abdominal exam: Present: normal bowel sounds, soft, no peritoneal signs. Absent: distended, tenderness - Extremities Exam Extremities exam: Present: warm, radial pulses palpable and symetrical. Absent : calf tenderness, cyanotic, pedal edema - Skin Skin exam: Present: dry, intact Internal Medicine: Result - Labs CBC & Chem 7: 11/13/16 04:44 11/13/16 04:44 Labs: Short CBC 11/13/16 Range/Units 04:44 WBC 5.9 (4.3-11.1) K/mcL Hgb 8.8 L (12.9-16.9) g/dL Hct 27.3 L (37.5-50.1) % Plt Count 95 L (140-400) K/mcL Neutrophils # 4.1 (1.6-8.9) K/mcL BMP 11/13/16 04:44 Sodium 139 Potassium 4.9 H Chloride 105 Carbon Dioxide 27 BUN 36 H Creatinine 2.39 H Glucose 132 H Calcium 8.6 - ABG Interpretation ABG results: PT/INR, D-dimer PT 17.5 Seconds (9.4-12.1) H 11/13/16 04:44 - Impressions Impressions Pelvis CT 11/12/16 18:00 IMPRESSION: 1. Limited evaluation of the bladder on this noncontrast CT of the pelvis. The bladder is decompressed around a Mayers catheter. 2. Prostatomegaly. 3. No inflammation or lymph node enlargement in the pelvis. D/ / Holger Medrano MD / Holger Medrano MD Interpreting Provider: Holger Medrano MD Consult Discharge Plan - Plan Referrals: [facility],PCP [Primary Care Provider] - 11/18/16 11:30 am <Shane Baxter T - Last Filed: 11/13/16 16:34> Date of Encounter: 11/13/16 - Constitutional Vitals: Temp Pulse Resp BP Pulse Ox 98.0 F 98 20 117/68 97 11/13/16 15:20 11/13/16 15:20 11/13/16 15:20 11/13/16 15:20 11/13/16 15:20 Internal Medicine: Result - Labs CBC & Chem 7: 11/13/16 04:44 11/13/16 04:44 Labs: Short CBC 11/13/16 Range/Units 04:44 WBC 5.9 (4.3-11.1) K/mcL Hgb 8.8 L (12.9-16.9) g/dL Hct 27.3 L (37.5-50.1) % Plt Count 95 L (140-400) K/mcL Neutrophils # 4.1 (1.6-8.9) K/mcL BMP 11/13/16 04:44 Sodium 139 Potassium 4.9 H Chloride 105 Carbon Dioxide 27 BUN 36 H Creatinine 2.39 H Glucose 132 H Calcium 8.6 - ABG Interpretation ABG results: PT/INR, D-dimer PT 17.5 Seconds (9.4-12.1) H 11/13/16 04:44 - Impressions Impressions Pelvis CT 11/12/16 18:00 IMPRESSION: 1. Limited evaluation of the bladder on this noncontrast CT of the pelvis. The bladder is decompressed around a Mayers catheter. 2. Prostatomegaly. 3. No inflammation or lymph node enlargement in the pelvis. D/ / Holger Medrano MD / Holger Medrano MD Interpreting Provider: Holger Medrano MD - Attending Attestation I examined this patient and my medical decision-making was reviewed with the Resident Physician on 11/13/16. I agree with the documented findings, disposition and treatment plan as described except to the extent set forth below. 81 M Seen and evaluated at bedside with his daughters present. Patient with Afib on anticoagulation, CHFrEF, COPD, CKD III, HLD, , Chronic leg ulcer, DM Admitted and being managed for painless hematuria Has no new complains, asking for discharge. Physical exam noted for Obesity, chest is clear, murmur, abdomen is not tender, no pedal edema bilaterally INR improved to 1.6, Hb slightly decreased from 11/12, hemodynamically stable, Per , patient will be discharged home with Mayers, Pelvis CT with no distinct masses, encourage liberal fluid intake, continue to monitor urine till clear, confirm from about anticoagulation continuation in view of plan for cystoscopy. Urine culture has no growth and antibiotic have since been discontinued Patient educated on benefits and risks of anticoagulation for and bladder bleeding. His other chronic medical conditions remain stable. Rest of details as in resident's documentation
--- NOTE | 2016-11-13 13:04 | Urology Progress Note ---
Date of Encounter: 11/13/16 Time of Encounter: 13:02 - Assessment and Plan (1) Clot retention of urine Current Visit: Yes Status: Resolved Assessment and plan: pt still has some hematuria but it appears to be slowing as the effects of the anticoagulation are resolving. I do not feel he will require surgery. ct scan confirms no large clot remains in his bladder after irrigation. will keep cath for now. hopefully will be off CBI soon. will likely need to keep cath at discharge. Progress Note Subjective: no new complaints, feels better Narrative: pt seen this AM. no issues overnight. Objective Initial Vital Signs Temp Pulse Resp BP Pulse Ox 97.9 F 82 18 116/69 100 11/11/16 11:59 11/11/16 11:59 11/11/16 11:59 11/11/16 11:59 11/11/16 11:59 - General physical appearance Present: well developed, no distress - Additional Exam urine fairly clear on moderate drip. - Labs 11/13/16 04:44 11/13/16 04:44 Diabetes panel 11/13/16 Range/Units 04:44 Sodium 139 (136-145) mEq/L Potassium 4.9 H (3.5-4.5) mEq/L Chloride 105 (98-109) mEq/L Carbon Dioxide 27 (19-29) mEq/L BUN 36 H (8-26) mg/dL Creatinine 2.39 H (0.72-1.25) mg/dL Glucose 132 H (70-99) mg/dL Calcium 8.6 (8.6-10.8) mg/dL Calcium panel 11/13/16 Range/Units 04:44 Calcium 8.6 (8.6-10.8) mg/dL Pituitary panel 11/13/16 Range/Units 04:44 Sodium 139 (136-145) mEq/L Potassium 4.9 H (3.5-4.5) mEq/L Chloride 105 (98-109) mEq/L Carbon Dioxide 27 (19-29) mEq/L BUN 36 H (8-26) mg/dL Creatinine 2.39 H (0.72-1.25) mg/dL Glucose 132 H (70-99) mg/dL Calcium 8.6 (8.6-10.8) mg/dL Adrenal panel 11/13/16 Range/Units 04:44 Sodium 139 (136-145) mEq/L Potassium 4.9 H (3.5-4.5) mEq/L Chloride 105 (98-109) mEq/L Carbon Dioxide 27 (19-29) mEq/L BUN 36 H (8-26) mg/dL Creatinine 2.39 H (0.72-1.25) mg/dL Glucose 132 H (70-99) mg/dL Calcium 8.6 (8.6-10.8) mg/dL Consult Discharge Plan - Plan Referrals: WILL,PCP [Primary Care Provider] - 11/18/16 11:30 am
[2016-11-14 04:48] LABS: INR 1.4; Prothrombin Time 14.7 Seconds (9.4-12.1)
[2016-11-14 06:07] LABS: Basophils % 0.3 %; Eosinophils # 0.1 K/mcL (0.0-0.6); Eosinophils % 1.3 %; Hematocrit 27.7 % (37.5-50.1); Hemoglobin 9.1 g/dL (12.9-16.9); Immature Granulocytes % 0.5 % (0-4); Lymphocytes # 1.3 K/mcL (0.6-4.6); Lymphocytes % 16.4 %; Mean Corpuscular HGB Conc 32.9 g/dL (31.6-35.5); Mean Corpuscular Hemoglobin 31.6 pg (28.0-33.3); Mean Corpuscular Volume 96.2 fL (83.0-100.0); Mean Platelet Volume 12.3 fL (9.4-12.4); Monocytes # 0.6 K/mcL (0.0-1.3); Monocytes % 6.9 %; Neutrophils # 5.9 K/mcL (1.6-8.9); Platelet Count 100 K/mcL (140-400); Red Blood Count 2.88 M/mcL (4.19-5.50); Red Cell Distribution Width 13.8 % (11.5-14.5); Segmented Neutrophils % 74.6 %
[2016-11-14 06:25] LABS: Calcium 8.7 mg/dL (8.6-10.8); Potassium 4.5 mEq/L (3.5-4.5)
--- NOTE | 2016-11-14 07:00 | Urology Progress Note ---
Date of Encounter: 11/14/16 Time of Encounter: 06:59 - Assessment and Plan (1) Clot retention of urine Current Visit: Yes Status: Resolved Assessment and plan: urine continues to clear as the INR continues to decrease (now 1.4). plan to stop CBI today. if urine stays clear or light hematuria off CBI will be closer to discharge with catheter in place. Despite Afib need to be very cautious with anitcoagulation with recent bleed. recommend holding any anticoaguation if possible now and at discharge. OK to discharge patient per urology standpoint if urine remains clear or transparent light hematuria off CBI. please discharge with cath in place and outpatient followup in 1-2 weeks. Progress Note Subjective: no new complaints Narrative: pt asleep. urine is clearing further overnight. Objective Initial Vital Signs Temp Pulse Resp BP Pulse Ox 97.9 F 82 18 116/69 100 11/11/16 11:59 11/11/16 11:59 11/11/16 11:59 11/11/16 11:59 11/11/16 11:59 - General physical appearance Present: no distress - Additional Exam CBI bag stopped. urine clear in the tube. - Labs 11/14/16 03:36 11/14/16 03:36 Diabetes panel 11/14/16 Range/Units 03:36 Sodium 131 L D (136-145) mEq/L Potassium 4.5 (3.5-4.5) mEq/L Chloride 99 (98-109) mEq/L Carbon Dioxide 27 (19-29) mEq/L BUN 34 H (8-26) mg/dL Creatinine 2.05 H (0.72-1.25) mg/dL Glucose 136 H (70-99) mg/dL Calcium 8.7 (8.6-10.8) mg/dL Calcium panel 11/14/16 Range/Units 03:36 Calcium 8.7 (8.6-10.8) mg/dL Pituitary panel 11/14/16 Range/Units 03:36 Sodium 131 L D (136-145) mEq/L Potassium 4.5 (3.5-4.5) mEq/L Chloride 99 (98-109) mEq/L Carbon Dioxide 27 (19-29) mEq/L BUN 34 H (8-26) mg/dL Creatinine 2.05 H (0.72-1.25) mg/dL Glucose 136 H (70-99) mg/dL Calcium 8.7 (8.6-10.8) mg/dL Adrenal panel 11/14/16 Range/Units 03:36 Sodium 131 L D (136-145) mEq/L Potassium 4.5 (3.5-4.5) mEq/L Chloride 99 (98-109) mEq/L Carbon Dioxide 27 (19-29) mEq/L BUN 34 H (8-26) mg/dL Creatinine 2.05 H (0.72-1.25) mg/dL Glucose 136 H (70-99) mg/dL Calcium 8.7 (8.6-10.8) mg/dL Consult Discharge Plan - Plan Referrals: WILLPCP [Primary Care Provider] - 11/18/16 11:30 am
[2016-11-14] MEDS: Insulin LISPRO 300 UNITS/3 ML VIAL SQ SCH ×2 (07:53→12:12)
[2016-11-14] MEDS: Budesonide/Formoterol 160/4.5 MDI IH SCH (08:00)
[2016-11-14] MEDS: Furosemide 40 MG TABLET PO SCH ×2 (09:12→16:23)
[2016-11-14] MEDS: Finasteride 5 MG TABLET PO SCH (09:12)
[2016-11-14] MEDS: *HR* Amiodarone 200 MG TABLET PO SCH (09:13)
[2016-11-14] MEDS: Baclofen 10 MG TABLET PO SCH (09:13)
[2016-11-14] MEDS: *HR* HYDROcodone/Acet 5/325 mg TABLET PO PRN (09:21)
--- NOTE | 2016-11-14 11:16 | Discharge Summary ---
<Linus Mendes - Last Filed: 11/14/16 13:35> Date of Encounter: 11/14/16 Time of Encounter: 08:20 - Discharge Diagnosis (1) Painless hematuria Priority: Primary Status: Acute Comments: Patient's urine has begun to clear since admission. -INR is currently 1.4. -CBI was stopped today. -Hold anticoagulation medicines, due to recent bleed. -Neurology has cleared patient for discharge. -Catheter will remain in place. -Patient will likely need follow-up in the outpatient setting for cystoscopy. -Patient will follow-up with urology in the outpatient setting in 1-2 weeks. (2) BPH (benign prostatic hyperplasia) Priority: Secondary Status: Acute Comments: Patient's prostate is enlarged. Continue home medications Proscar and Flomax. Qualifiers: Lower urinary tract symptom presence: unspecified whether lower urinary tract symptoms present Qualified Code(s): N40.0 - Benign prostatic hyperplasia without lower urinary tract symptoms (3) CKD (chronic kidney disease) stage 3, GFR 30-59 ml/min Priority: Secondary Status: Acute Comments: Baseline GFR is 41. (4) Diabetes mellitus type 2 in obese Priority: Secondary Status: Acute (5) CHF (congestive heart failure) Priority: Secondary Status: Chronic Qualifiers: Congestive heart failure type: unspecified congestive heart failure type Congestive heart failure chronicity: unspecified congestive heart failure chronicity Qualified Code(s): I50.9 - Heart failure, unspecified (6) COPD (chronic obstructive pulmonary disease) Priority: Secondary Status: Chronic Qualifiers: Emphysema type: unspecified Qualified Code(s): J43.9 - Emphysema, unspecified (7) Atrial fibrillation Priority: Secondary Status: Chronic Comments: Hold anticoagulant medications for the time being, due to recent bleed. Qualifiers: Atrial fibrillation type: unspecified Qualified Code(s): I48.91 - Unspecified atrial fibrillation - Discharge Medications Home Medications: Albuterol Sulfate [Proair Hfa] 2 puff IH QID PRN 11/11/16 [History] Amiodarone [Cordarone] 200 mg PO DAILY 11/11/16 [History] Apixaban [Eliquis] 5 mg PO BID 11/11/16 [History] Ascorbate Calcium [Vitamin C] 250 mg PO DAILY 11/11/16 [History] Aspirin [Lo-Dose Aspirin EC] 81 mg PO DAILY 11/11/16 [History] Baclofen [Lioresal] 5 mg PO BID 11/11/16 [History] Budesonide/Formoterol 160/4.5 [Symbicort 160/4.5] 2 puff IH BID 11/11/16 [ History] Calcium Carbonate [Calcium] 650 mg PO DAILY 11/11/16 [History] Docusate Sodium [Dok] 100 mg PO DAILY 11/11/16 [History] Ferrous Sulfate [Iron] 325 mg PO DAILY 11/11/16 [History] Finasteride [Proscar] 5 mg PO DAILY 11/11/16 [History] Furosemide [Lasix] 40 mg PO BID 11/11/16 [History] HYDROcodone/Acet 5/325 mg [[place] 5-325 mg] 1 tab PO Q6H PRN 11/11/16 [History] Lisinopril [Zestril] 10 mg PO DAILY 11/11/16 [History] Omeprazole 20 mg PO DAILY 11/11/16 [History] Polyethylene Glycol 3350 [MiraLAX bowel prep] 17 gm PO DAILY 11/11/16 [History] Rosuvastatin [Crestor] 10 mg PO HS 11/11/16 [History] Tamsulosin HCl [Flomax] 0.4 mg PO DAILY 11/11/16 [History] glipiZIDE [Glucotrol] 5 mg PO BID 11/11/16 [History] Allergies/Adverse Reactions: Allergies bacitracin Allergy (Verified 01/16/16 16:36) Rash Procedures/tests Complete & Pending: Procedures Performed prior 72 hours Category Date Time Status CT pelvis wo no iv no oral [CT] Routine Cat Scan 11/12/16 18:00 Completed ECG 12 lead ECG [ECG] Routine Y 11/11/16 12:00 Completed Date of admission: 11/11/16 20:01 Primary care physician: PCP [place] Discharging clinician: Linus Mendes Anticipated date of discharge: 11/14/16 - Patient Status Disposition: Home, Self-Care Condition: Good Overall status at discharge: patient is progressing back to baseline - Discharge Instructions Instructions: Heart Failure (DC), Atrial Fibrillation (DC) Follow Up With: [facility] [Primary Care Provider] - 11/18/16 11:30 am - Diet and Activity Activity: increase activity as tolerated, resume usual activities as tolerated Diet: advance to your usual diet Hospital course: Mr. Waterman is a 81 year old male who presented to the hospital with the complaint of painless hematuria. He became so weak on the toilet that he was unable to get up. When EMS arrived his systolic blood pressure was 70. He was brought to the hospital. Patient did not complain of abdominal pain or flank pain at the time of admission. He does admit that he has had painless hematuria before, with last episode happening one and a half years ago. Patient 's feeling of weakness improved during his stay in the hospital. He denied having any pain in his abdomen or suprapubic region. His catheter bag was examined every day. During his first day, bright red blood was seen in his catheter bag. Afterward, his urine began to clear. Retroperitoneal ultrasound of the kidneys and bladder was performed. No abnormalities are seen in the kidneys. Patient's prostate was enlarged, measuring 7.3 x 6.9 x 5.0 cm. There were large filling defects found in the urinary bladder, presumably representing clots. CT scan was performed on the pelvis to rule out the possibility of a mass in the bladder. CT scan showed that the patient had enlarged prostate. No bladder mass was seen. He will likely need a cystoscopy in the outpatient setting. He was seen by Urologist Dr. Waterman. Dr. Waterman advised that patient should stop his anticoagulation medications. Patient has atrial fibrillation, for which he takes amiodarone. He is also on Coumadin and Eliquis. These were held, due to patient's active bleeding. Patient was given vitamin K to reverse anticoagulation. This seemed to be effective, as his INR decreased. On date of discharge, INR is 1.4. During his stay in hospital, patient was stable. Never complained of any pain or any fatigue. Mayers catheter will remain as advised by Dr. Waterman. Patient will follow up in the outpatient setting with urology in 1-2 weeks. - Time Spent with Patient Total time spent providing and/or coordinating discharge services: Greater than 30 minutes - Constitutional Vitals: Temp Pulse Resp BP Pulse Ox 97.9 F 86 16 129/72 98 11/14/16 07:50 11/14/16 07:50 11/14/16 08:03 11/14/16 07:50 11/14/16 09:30 General appearance: Present: cooperative, A&O X 3, morbidly obese, no acute distress, answers questions appropriately - ENT ENT exam: Present: mucous membranes moist - Respiratory Respiratory exam: Present: CTAB. Absent: accessory muscle use, rales, rhonchi, wheezes - Cardiovascular Cardiovascular exam: Present: RRR, +S1, +S2. Absent: diastolic murmur, gallop, rubs, systolic murmur - GI/Abdominal GI/Abdominal exam: Present: normal bowel sounds, soft, no peritoneal signs. Absent: distended, tenderness - VTE Documentation of Mechanical Device: Intermittent pneumatic compression device <Shane Baxter - Last Filed: 11/14/16 16:54> Date of Encounter: 11/14/16 Procedures/tests Complete & Pending: Procedures Performed prior 72 hours Category Date Time Status CT pelvis wo no iv no oral [CT] Routine Cat Scan 11/12/16 18:00 Completed Date of admission: 11/11/16 20:01 Primary care physician: PCP [place] Hospital course: Mr. Waterman is a 81 year old male - Time Spent with Patient Total time spent providing and/or coordinating discharge services: - Constitutional Vitals: Temp Pulse Resp BP Pulse Ox 98.2 F 88 17 129/69 97 11/14/16 11:17 11/14/16 11:17 11/14/16 11:17 11/14/16 11:17 11/14/16 11:17 - Attending Attestation I examined this patient and my medical decision-making was reviewed with the Resident Physician on 11/14/16. I agree with the documented findings, disposition and treatment plan as described except to the extent set forth below. Patients urine is clearing. He has been off CBI since yesterday. He has no new complains. Hb is stable. He is stable for discharge with indwelling Mayers. No anticoagulation till review by Urology/Cystoscopy. Patient is educated about this and verbalized understanding. Rest of details as in resident physicians documentation
[2016-11-14 11:19] VITALS: BP 129/69
== END 2016-11-14 17:00 | disposition home or self-care (01) | DRG 696 ==
LOC: 2ANU 11:57 → EMEROO 11:57 → SUATTDRO 13:04 → 2ANU 13:10 → MERGE 20:01 → SUATTDRO 20:01
PROVIDERS: ADMIT Internal Medicine; ATTEND Internal Medicine